=== PATIENT | female | born 1985 | race Caucasian/White ===

== ENCOUNTER 2018-08-27 07:34 | Outpatient (CLI) | payer BC ==
--- NOTE | 2018-08-27 08:50 | MRI ---
EXAM: Right knee MRI without contrast: HISTORY: Internal derangement COMPARISON: Outside exam, 08/24/2016 FINDINGS: Multiplanar, multisequence MRI examination of the knees performed. No significant suprapatellar recess effusion. Small popliteal fossa cyst There is a new full-thickness fissure involving the central patellar facet with a stable full-thickne ss fissure involving the medial patellar facet unchanged from prior exam. Medial meniscus: Unremarkable. Lateral meniscus: Unremarkable. Anterior cruciate ligament:Intact. Posterior cruciate ligament: Intact. Medial collateral ligament complex: Intact. Lateral collateral ligament complex: Intact. Quadriceps and patellar tendons: Intact. Extensor mechanism: There is subtle fat stranding in the superior lateral aspect of Hoffa's fat, a fi nding that can be seen in patellar tendon lateral femoral condyle syndrome. No evidence for acute osteochondral defect or abnormal marrow signal. IMPRESSION: New full-thickness fissure involving the central patellar facet cartilage with a stable medial facet cartilage fissure. Stable subtle fat stranding in the superior lateral aspect of Hoffa's fat. No evid ence for other significant acute process.
== END 2018-08-27 07:35 | disposition home or self-care (01) ==
LOC: TBSIIMAG 07:34
PROVIDERS: ATTEND Orthopaedic Surgery
DX: M23.91 Unspecified internal derangement of right knee (principal); M94.8X6 Other specified disorders of cartilage, lower leg

== ENCOUNTER 2018-09-24 12:49 | Outpatient (CLI) | payer BC ==
--- NOTE | 2018-09-24 13:32 | MMO ---
Bilateral MAMMO Bilat Diag [facility]. CLINICAL HISTORY: Patient is 33 years old and is seen for diagnostic exam,nipple abnormality and pain in the left breast. The patient has the following family history of breast cancer: maternal aunt and maternal grandmother. The patient has no personal history of cancer. VIEWS: The views performed were: bilateral craniocaudal with tomosynthesis; bilateral mediolateral oblique with tomosynthesis; and bilateral mediolateral. FILMS COMPARED: The present examination has been compared to a prior imaging study performed at [facility] on 09/24/2018. MAMMOGRAM FINDINGS: The breasts are heterogeneously dense, which could obscure a lesion on mammography. There are no suspicious masses, suspicious calcifications, or new areas of architectural distortion. There are no mammographic or sonographic abnormalities to explain the patient's reported left breast pain and nipple discharge. The patient is referred back to her clinician. Negative imaging findings should not preclude further evaluation if clinical findings are suspicious. IMPRESSION: THERE ARE NO MAMMOGRAPHIC ABNORMALITIES TO EXPLAIN THE PATIENT'S REPORTED LEFT BREAST PAIN AND NIPPLE DISCHARGE. THE PATIENT IS REFERRED BACK TO HER CLINICIAN. NEGATIVE IMAGING FINDINGS SHOULD NOT PRECLUDE FURTHER EVALUATION IF CLINICAL FINDINGS ARE SUSPICIOUS. A ROUTINE FOLLOW-UP MAMMOGRAM AT AGE 40 IS RECOMMENDED. THE RESULTS OF THIS EXAM WERE SENT TO THE PATIENT. ACR BI-RADS Category 1 - Negative MAMMOGRAPHY NOTE: 1. A negative mammogram report should not delay a biopsy if a dominant of clinically suspicious mass is present. 2. Approximately 10% to 15% of breast cancers are not detected by mammography. 3. Adenosis and dense breasts may obscure an underlying neoplasm.
--- NOTE | 2018-09-24 13:51 | ULT ---
LIMITED LEFT BREAST ULTRASOUND: Date: 09/24/18 PROVIDED CLINICAL HISTORY: Left breast pain and discharge. FINDINGS: Limited sonographic interrogation was performed in the retroareolar region of the left breast. The so nographic appearance of the breast parenchyma in this region is normal. IMPRESSION: BIRADS Category 1 - Negative. Negative imaging findings should not preclude further evaluation of a c linically suspicious finding. The patient is referred back to her clinician. POS: OFF
== END 2018-09-24 12:50 | disposition home or self-care (01) ==
LOC: BICMAMMO 12:49
PROVIDERS: ATTEND Family Medicine
DX: N64.59 Other signs and symptoms in breast (principal); R92.8 Other abnormal and inconclusive findings on diagnostic imaging of breast; N64.4 Mastodynia; N64.52 Nipple discharge; Z80.3 Family history of malignant neoplasm of breast
CPT/HCPCS: 77066; G0279

== ENCOUNTER 2025-04-10 08:47 | Outpatient (CLI) | payer BC | END 2025-04-10 08:48 | disposition home or self-care (01) | LOC: SCSMRI 08:47 | PROVIDERS: ATTEND Orthopaedic Surgery | DX: S83.222A Peripheral tear of medial meniscus, current injury, left knee, initial encounter (principal); M25.462 Effusion, left knee; M24.19 Other articular cartilage disorders, other specified site ==